=== PATIENT | female | born 1970 | race Hispanic/Latino ===

== ENCOUNTER → 2024-04-01 17:16 | Outpatient (REF) | payer BC, SELFPAY | LOC: RAD 17:16 | PROVIDERS: ATTENDING PHYSICIAN Physician Assistant Medical | DX: M25.512 Pain in left shoulder (principal) | CPT/HCPCS: 73030 ==

== ENCOUNTER → 2024-04-03 11:35 | Outpatient (REF) | payer BC, SELFPAY | LOC: MRI 11:35 | PROVIDERS: ATTENDING PHYSICIAN Physician Assistant Medical | DX: M25.512 Pain in left shoulder (principal) | CPT/HCPCS: 73221 ==

== ENCOUNTER → 2024-05-06 13:38 | Outpatient (REF) | payer BC, SELFPAY | LOC: WDC 13:38 | PROVIDERS: ATTENDING PHYSICIAN Physician Assistant Medical | DX: Z12.31 Encounter for screening mammogram for malignant neoplasm of breast (principal) | CPT/HCPCS: 77063; 77067 ==

== ENCOUNTER → 2024-05-07 08:17 | Outpatient (REF) | payer BC, SELFPAY ==
[2024-05-07 10:20] LABS: % Basophils 0.5 % (0-2); % Eosinophils 4.8 % (0-6); % Lymphocytes 30.9 % (20.5-51.1); % Monocytes 7.1 % (1.7-9.3); % Neutrophils 56.7 % (42.2-75.2); Absolute Eosinophils 0.2 10^3/uL (0-0.7); Absolute Lymphocytes 1.3 10^3/uL (1.2-3.4); Absolute Monocytes 0.3 10^3/uL (0.1-0.6); Absolute Neutrophils 2.4 10^3/uL (1.4-6.5); Hematocrit 38.3 % (37.0-47.0); Hemoglobin 12.7 g/dL (12.0-16.0); Mean Corp Hgb Conc. 33.2 g/dL (33.0-37.0); Mean Corpuscular Hgb 27.9 pg (27.0-31.0); Mean Corpuscular Volume 84.2 fL (81.0-99.0); Mean Platelet Volume 11.9 fL (7.4-10.4); Nucleated Red Blood Cells % 0 %; Platelet Count 235 10^3/uL (130-400); Red Blood Cell Count 4.55 10^6/uL (4.20-5.40); Red Cell Dist. Width 14.7 % (11.5-14.5); White Blood Cell Count 4.2 10^3/uL (4.8-10.8)
[2024-05-07 10:57] LABS: ALT (SGPT) 24 U/L (0-35); AST (SGOT) 28 U/L (14-36); Albumin 4.5 g/dl (3.5-5.0); Alkaline Phosphatase 68 U/L (38-126); Blood Urea Nitrogen 25 mg/dl (7-17); Calcium 10.3 mg/dl (8.4-10.2); Carbon Dioxide 23 mmol/L (22-30); Chloride 108 mmol/L (98-107); Glucose 99 mg/dl (70-99); HDL Cholesterol 68 mg/dl; LDL Cholesterol, Calculated 120 mg/dl; Potassium 4.6 mmol/L (3.5-5.1); Sodium 142 mmol/L (135-145); Total Bilirubin 0.5 mg/dl (0.2-1.3); Total Cholesterol 209 mg/dl (50-199); Total Protein 7.6 g/dl (6.3-8.2); Triglyceride 107 mg/dl (10-149); Very Low Density Lipoprotein 21 mg/dl (0-30); eGFR > 60.00
[2024-05-07 11:20] LABS: TSH 1.33 uIU/ml (0.47-4.68)
== END ==
LOC: REG 08:17
PROVIDERS: ATTENDING PHYSICIAN Physician Assistant Medical
DX: Z00.00 Encounter for general adult medical examination without abnormal findings (principal)
CPT/HCPCS: 36415; 80053; 80061; 84443; 85025

== ENCOUNTER → 2024-05-08 15:17 | Outpatient (REF) | payer BC, SELFPAY ==
[2024-05-08 16:53] LABS: Hematocrit 35.4 % (37.0-47.0); Hemoglobin 12.2 g/dL (12.0-16.0); Mean Corp Hgb Conc. 34.5 g/dL (33.0-37.0); Mean Corpuscular Hgb 28.3 pg (27.0-31.0); Mean Corpuscular Volume 82.1 fL (81.0-99.0); Mean Platelet Volume 11.6 fL (7.4-10.4); Platelet Count 278 10^3/uL (130-400); Red Blood Cell Count 4.31 10^6/uL (4.20-5.40); Red Cell Dist. Width 14.7 % (11.5-14.5); White Blood Cell Count 4.4 10^3/uL (4.8-10.8)
[2024-05-08 17:05] LABS: ALT (SGPT) 25 U/L (0-35); AST (SGOT) 30 U/L (14-36); Albumin 4.5 g/dl (3.5-5.0); Alkaline Phosphatase 79 U/L (38-126); Blood Urea Nitrogen 22 mg/dl (7-17); Calcium 10.4 mg/dl (8.4-10.2); Carbon Dioxide 22 mmol/L (22-30); Chloride 107 mmol/L (98-107); Glucose 104 mg/dl (70-99); Potassium 4.3 mmol/L (3.5-5.1); Sodium 138 mmol/L (135-145); Total Bilirubin 0.3 mg/dl (0.2-1.3); Total Protein 7.3 g/dl (6.3-8.2); eGFR > 60.00
== END ==
LOC: REG 15:17
PROVIDERS: ATTENDING PHYSICIAN Physician Assistant Medical
DX: E87.0 Hyperosmolality and hypernatremia (principal); D72.89 Other specified disorders of white blood cells
CPT/HCPCS: 36415; 80053; 85027

== ENCOUNTER 2024-05-17 11:21 | Outpatient (RCR) | payer BC, SELFPAY | END 2024-05-17 23:59 | disposition home or self-care (01) | LOC: RPT 11:21 | PROVIDERS: ATTENDING PHYSICIAN Specialist; FAMILY PHYSICIAN Physician Assistant Medical | DX: M25.512 Pain in left shoulder (principal); M75.02 Adhesive capsulitis of left shoulder; Z73.6 Limitation of activities due to disability | CPT/HCPCS: 97010; 97110; 97112; 97140; 97161 ==

== ENCOUNTER → 2024-06-07 09:17 | Outpatient (REF) | payer BC, SELFPAY ==
[2024-06-07 11:14] LABS: % Basophils 0.6 % (0-2); % Eosinophils 3.7 % (0-6); % Immature Granulocytes 0.2 % (0-0.5); % Lymphocytes 26.4 % (20.5-51.1); % Monocytes 6.4 % (1.7-9.3); % Neutrophils 62.7 % (42.2-75.2); Absolute Eosinophils 0.2 10^3/uL (0-0.7); Absolute Lymphocytes 1.4 10^3/uL (1.2-3.4); Absolute Monocytes 0.3 10^3/uL (0.1-0.6); Absolute Neutrophils 3.3 10^3/uL (1.4-6.5); Hematocrit 37.1 % (37.0-47.0); Hemoglobin 12.7 g/dL (12.0-16.0); Mean Corp Hgb Conc. 34.2 g/dL (33.0-37.0); Mean Corpuscular Hgb 29.3 pg (27.0-31.0); Mean Corpuscular Volume 85.5 fL (81.0-99.0); Mean Platelet Volume 11.7 fL (7.4-10.4); Nucleated Red Blood Cells % 0 %; Platelet Count 265 10^3/uL (130-400); Red Blood Cell Count 4.34 10^6/uL (4.20-5.40); Red Cell Dist. Width 14.4 % (11.5-14.5); White Blood Cell Count 5.2 10^3/uL (4.8-10.8)
[2024-06-07 11:40] LABS: ALT (SGPT) 26 U/L (0-35); AST (SGOT) 27 U/L (14-36); Albumin 4.3 g/dl (3.5-5.0); Alkaline Phosphatase 83 U/L (38-126); Blood Urea Nitrogen 25 mg/dl (7-17); Calcium 9.7 mg/dl (8.4-10.2); Carbon Dioxide 25 mmol/L (22-30); Chloride 107 mmol/L (98-107); Glucose 99 mg/dl (70-99); Potassium 4.7 mmol/L (3.5-5.1); Sodium 141 mmol/L (135-145); Total Bilirubin 0.3 mg/dl (0.2-1.3); Total Protein 7.1 g/dl (6.3-8.2); eGFR > 60.00
[2024-06-07 15:09] LABS: Glycohemoglobin (HgbA1c) 5.3 % (4.0-5.6)
== END ==
LOC: REG 09:17
PROVIDERS: ATTENDING PHYSICIAN Physician Assistant Medical
DX: R79.9 Abnormal finding of blood chemistry, unspecified (principal); E87.5 Hyperkalemia; R73.9 Hyperglycemia, unspecified
CPT/HCPCS: 36415; 80053; 83036; 85025

== ENCOUNTER 2024-06-14 13:10 | Outpatient (RCR) | payer BC, SELFPAY | END 2024-06-14 23:59 | disposition home or self-care (01) | LOC: RPT 13:10 | PROVIDERS: ATTENDING PHYSICIAN Specialist; FAMILY PHYSICIAN Physician Assistant Medical | DX: M25.512 Pain in left shoulder (principal); M75.02 Adhesive capsulitis of left shoulder; Z73.6 Limitation of activities due to disability | CPT/HCPCS: 97010; 97110; 97112; 97140 ==

== ENCOUNTER 2024-07-05 13:03 | Outpatient (RCR) | payer BC, SELFPAY | END 2024-07-05 23:59 | disposition home or self-care (01) | LOC: RPT 13:03 | PROVIDERS: ATTENDING PHYSICIAN Specialist; FAMILY PHYSICIAN Physician Assistant Medical | DX: M25.512 Pain in left shoulder (principal); M75.02 Adhesive capsulitis of left shoulder; Z73.6 Limitation of activities due to disability | CPT/HCPCS: 97010; 97110; 97140; 97530 ==

== ENCOUNTER → 2024-07-18 13:08 | Outpatient (REF) | payer BC, SELFPAY | LOC: RCS 13:08 | PROVIDERS: ATTENDING PHYSICIAN Specialist; FAMILY PHYSICIAN Physician Assistant Medical | DX: Z01.818 Encounter for other preprocedural examination (principal) | CPT/HCPCS: 93005 ==

== ENCOUNTER 2024-07-23 05:59 | Day surgery (SDC) | payer BC, SELFPAY ==
[2024-07-23 06:09] VITALS: BMI 27.8
[2024-07-23 06:10] VITALS: BP 112/64
[2024-07-23] MEDS: TYLENOL 1000 MG PO (06:19)
[2024-07-23] MEDS: CELEBREX 200 MG PO (06:19)
[2024-07-23] MEDS: NORMOSOL-R/PLASMALYTE-A 1000 IV (06:26)
[2024-07-23 07:45] VITALS: BP 106/64
[2024-07-23 07:59] VITALS: BP 111/73
[2024-07-23 08:00] VITALS: BP 111/73
[2024-07-23 08:15] VITALS: BP 106/59
== END 2024-07-23 09:00 | disposition home or self-care (01) ==
LOC: SDS 05:59
PROVIDERS: ATTENDING PHYSICIAN Specialist
DX: M75.02 Adhesive capsulitis of left shoulder (principal)
CPT/HCPCS: 23700

== ENCOUNTER 2024-08-14 11:57 | Outpatient (RCR) | payer BC, SELFPAY | END 2024-08-14 23:59 | disposition home or self-care (01) | LOC: RPT 11:57 | PROVIDERS: ATTENDING PHYSICIAN Specialist; FAMILY PHYSICIAN Physician Assistant Medical | DX: M25.512 Pain in left shoulder (principal); M75.02 Adhesive capsulitis of left shoulder; Z73.6 Limitation of activities due to disability | CPT/HCPCS: 97010; 97110; 97112; 97140; 97164 ==

== ENCOUNTER 2024-08-26 12:13 | Outpatient (RCR) | payer BC, SELFPAY | END 2024-09-02 14:47 | disposition home or self-care (01) | LOC: RPT 12:13 | PROVIDERS: ATTENDING PHYSICIAN Specialist; FAMILY PHYSICIAN Physician Assistant Medical | DX: M25.512 Pain in left shoulder (principal); M75.02 Adhesive capsulitis of left shoulder; Z73.6 Limitation of activities due to disability | CPT/HCPCS: 97110; 97140 ==

== ENCOUNTER → 2025-08-19 14:53 | Outpatient (REF) | payer BC, SELFPAY | LOC: RAD 14:53 | PROVIDERS: ATTENDING PHYSICIAN Physician Assistant Medical | DX: R10.2 Pelvic and perineal pain (principal) | CPT/HCPCS: 74177; Q9967 ==

== ENCOUNTER 2025-10-20 06:16 | Day surgery (SDC) | payer BC, SELFPAY | END 2025-10-20 13:33 | disposition home or self-care (01) | LOC: GI 06:16 | PROVIDERS: ATTENDING PHYSICIAN Internal Medicine; FAMILY PHYSICIAN Physician Assistant Medical | DX: C18.0 Malignant neoplasm of cecum (principal); R93.3 Abnormal findings on diagnostic imaging of other parts of digestive tract; D49.0 Neoplasm of unspecified behavior of digestive system; K56.690 Other partial intestinal obstruction | CPT/HCPCS: 45380; 88305; 88342 ==

== ENCOUNTER → 2025-11-05 15:56 | Outpatient (REF) | payer BC, SELFPAY | LOC: RAD 15:56 | PROVIDERS: ATTENDING PHYSICIAN Surgery; FAMILY PHYSICIAN Physician Assistant Medical | DX: C18.8 Malignant neoplasm of overlapping sites of colon (principal) | CPT/HCPCS: 71260; 72197; 74177; A9575; Q9967 ==